=== PATIENT | female | born 1980 | race African-American/Black ===

== ENCOUNTER → 2021-12-18 10:00 | Outpatient (BNVA) | payer OTHER, SELFPAY | PROVIDERS: PCP Internal Medicine; Visit Provider Nurse Practitioner Family | DX: G43.009 Migraine without aura, not intractable, without status migrainosus (principal); F90.9 Attention-deficit hyperactivity disorder, unspecified type; Z79.899 Other long term (current) drug therapy | CPT/HCPCS: 99202 ==

== ENCOUNTER 2022-01-09 19:07 | Outpatient (REF) | payer OTHER, SELFPAY ==
--- NOTE | ~2022-01-09 | MR_ITS ---
EXAMINATION: MRI OF THE BRAIN WITHOUT CONTRAST CLINICAL INFORMATION: 41-year-old with migraines without aura, not intractable, without status migrainosus. Chronic progressive worsening migraines. COMPARISON: None TECHNIQUE: Multiplanar multisequence MR imaging of the brain was done without IV contrast. FINDINGS: BRAIN VOLUME: Within normal limits within the limitations of qualitative assessment. STRUCTURAL: Partially empty sella noted. Normal variant. BRAIN AND MENINGES: DWI sequence demonstrates no restricted diffusion to suggest acute or subacute cerebral ischemia. Scattered small foci of FLAIR/T2 signal hyperintensity noted within the subcortical white matter of both cerebral hemispheres which are nonspecific findings. Otherwise the brain is normal in morphology and signal intensity. Gradient refocused imaging demonstrates no abnormal magnetic susceptibility artifact to suggest hemorrhage, hemosiderin staining or abnormal mineral deposition. Soler-white matter differentiation is well maintained. No extra-axial fluid collections, space-occupying process or mass effect are identified. VENTRICLES AND SUBARACHNOID SPACES: The ventricular system and subarachnoid spaces are within normal limits without hydrocephalus. Incidental small cavum septum pellucidum. ORBITAL STRUCTURES: Mild bilateral proptosis is suspected. VASCULAR: Signal voids are noted in the visualized major intracranial vessels. OSSEOUS STRUCTURES, SINUSES/MASTOIDS, EXTRACRANIAL SOFT TISSUES: Unremarkable. MR/MR head/brain wo con IMPRESSION: 1. Nonspecific scattered subcortical white matter T2 hyperintensities in both cerebral hemispheres. Given the patient's history, these could reflect migraine-associated vasculopathy. Chronic ischemic microangiopathy would also be another consideration. 2. No acute intracranial process. No evidence for infarction, hemorrhage, extra-axial fluid collection, space-occupying process, mass effect or hydrocephalus. 3. Mild bilateral proptosis suspected. Suggest correlation with ophthalmologic examination.
== END 2022-01-09 19:08 | disposition home or self-care (01) ==
LOC: HO.MRI 19:07
PROVIDERS: Visit Provider Nurse Practitioner Family
DX: G43.009 Migraine without aura, not intractable, without status migrainosus (principal)
CPT/HCPCS: 70551

== ENCOUNTER 2022-01-19 11:24 | Outpatient (REF) | payer OTHER, SELFPAY ==
[2022-01-19 14:42] LABS: TSH reflex Free T4 1.45 uIU/mL (0.32-4.0)
== END 2022-01-19 11:25 | disposition home or self-care (01) ==
LOC: HO.HMGCLDS 11:24
PROVIDERS: Visit Provider Nurse Practitioner Family
DX: H05.20 Unspecified exophthalmos (principal); R53.83 Other fatigue
CPT/HCPCS: 36415; 84443